=== PATIENT | female | born 1990 | race Asian ===

== ENCOUNTER 2017-07-22 08:56 | Emergency (ER) | payer MEDICAID ==
[2017-07-22 10:10] LABS: Basophils # (auto) 0 uL; Basophils % (auto) 0.3 % (0.0-2.0); CONDITION Y; Eosinophils # (auto) 0.1 uL; Hematocrit 47.2 % (36.0-46.0); Hemoglobin 15.6 g/dL (12.2-16.2); Lymphocytes # (auto) 2.6 uL; Lymphocytes % (auto) 35.4 % (10.0-50.0); Mean Corpuscular Hemoglobin 30.9 pg (28.0-32.0); Mean Corpuscular Hgb Conc. 33.2 g/dL (32.0-36.0); Mean Corpuscular Volume 93.2 fL (80.0-100.0); Mean Platelet Volume 10.3 fL (7.4-10.4); Monocytes # (auto) 0.5 uL; Monocytes % (auto) 7.1 % (0.0-12.0); Neutrophils % (auto) 55.2 % (37.0-80.0); Platelet Count (auto) 248 10^3/uL (140-450); Red Cell Distribution Width 13.8 % (11.6-16.0); White Blood Cell 7.3 10^3/uL (4.4-10.8)
[2017-07-22 10:11] LABS: Urine RBC None Seen /hpf (0 - 4)
[2017-07-22 10:23] LABS: Albumin 3.6 g/dL (3.4-5.0); BUN/Creatinine Ratio 12.9; Bilirubin, Total 1.1 mg/dL (0.2-1.0); Calcium 8.8 mg/dL (8.5-10.1); Total Protein 8.7 g/dL (6.4-8.2)
[2017-07-22 10:35] LABS: Urine Bilirubin Negative (Negative); Urine Blood Negative /uL (Negative); Urine Color Yellow (Yellow); Urine Glucose Normal (Normal); Urine Ketone Negative (Negative); Urine Mucus FEW (None Seen); Urine Nitrite Negative (Negative); Urine Squamous Epithelial Cell FEW /hpf (<5)
[2017-07-22] MEDS ORDERED: KETOROLAC TROMETH 60MG/2ML VIAL IM ONE (11:00)
[2017-07-22 13:08] VITALS: BP 115/71
== END 2017-07-22 13:18 | disposition home or self-care (01) ==
LOC: ER 08:56
DX: N83.202 Unspecified ovarian cyst, left side (principal)
CPT/HCPCS: 36415; 74176; 80053; 81001; 81025; 82150; 83690; 84702; 85025; 94761; 96372; 99285; J1885

== ENCOUNTER 2018-02-15 19:15 | Emergency (ER) | payer MEDICAID ==
[~2018-02-15] VITALS: Ht 170.2 cm; Wt 127.0 kg
[2018-02-15 19:32] VITALS: BP 129/76
[2018-02-15] MEDS ORDERED: cefTRIAXone SOD 1,000 MG VL IM ONE (23:00)
[2018-02-15] MEDS ORDERED: methylPREDNISolone SOD SUCC 40 MG/ML VL IM ONE (23:00)
== END 2018-02-15 23:00 | disposition home or self-care (01) ==
LOC: ER 19:15
DX: J03.90 Acute tonsillitis, unspecified (principal)
CPT/HCPCS: 99283; J0696; J2920

== ENCOUNTER 2018-03-05 10:23 | Emergency (ER) | payer MEDICAID ==
[~2018-03-05] VITALS: Ht 170.2 cm; Wt 124.3 kg
[2018-03-05 10:45] VITALS: BP 133/86
[2018-03-05] MEDS ORDERED: cefTRIAXone SOD 1,000 MG VL IM ONE (11:00)
[2018-03-05] MEDS ORDERED: LIDOCAINE 1% (LOCAL ANESTH.) PF 5ml SDV ONE (12:24)
== END 2018-03-05 12:52 | disposition home or self-care (01) ==
LOC: ER 10:23
DX: J20.9 Acute bronchitis, unspecified (principal)
CPT/HCPCS: 96372; 99283; J0696

== ENCOUNTER 2018-04-17 11:08 | Emergency (ER) | payer MEDICAID ==
[~2018-04-17] VITALS: Ht 170.2 cm; Wt 122.5 kg
[2018-04-17 14:33] VITALS: BP 147/75
== END 2018-04-17 15:31 | disposition home or self-care (01) ==
LOC: ER 11:10
DX: M54.5 Low back pain (principal)
CPT/HCPCS: 74176; 81025

== ENCOUNTER 2018-08-17 11:33 | Emergency (ER) | payer MEDICAID ==
[~2018-08-17] VITALS: Ht 170.2 cm; Wt 120.2 kg
[2018-08-17 12:05] VITALS: BP 142/93
[2018-08-17 12:20] LABS: Urine Bacteria NONE SEEN /hpf (None Seen); Urine Blood Negative /uL (Negative); Urine Mucus FEW (None Seen); Urine Specific Gravity 1.028 (1.001-1.035); Urine WBC 1 /hpf (0 - 5)
== END 2018-08-17 14:18 | disposition left against medical advice (07) ==
LOC: ER 11:33
DX: N83.202 Unspecified ovarian cyst, left side (principal); Z53.29 Procedure and treatment not carried out because of patient's decision for other reasons
CPT/HCPCS: 76856; 81001; 81025

== ENCOUNTER 2020-02-01 13:59 | Emergency (ER) | payer MEDICAID, OTHER ==
[~2020-02-01] VITALS: Ht 170.2 cm; Wt 127.0 kg
[2020-02-01 15:31] VITALS: BP 131/82
[2020-02-01] MEDS ORDERED: IBUPROFEN 800 MG TAB PO ONE (16:15)
== END 2020-02-01 16:43 | disposition home or self-care (01) ==
LOC: ER 13:59
DX: S63.91XA Sprain of unspecified part of right wrist and hand, initial encounter (principal); X50.1XXA Overexertion from prolonged static or awkward postures, initial encounter; Y93.89 Activity, other specified; Y99.8 Other external cause status; Y92.69 Other specified industrial and construction area as the place of occurrence of the external cause
CPT/HCPCS: 29125; 73130

== ENCOUNTER 2020-05-14 08:55 | Emergency (ER) | payer OTHER ==
[~2020-05-14] VITALS: Ht 170.2 cm; Wt 104.3 kg
[2020-05-14 09:17] VITALS: BP 135/107
== END 2020-05-14 10:54 | disposition home or self-care (01) ==
LOC: ER 08:55
DX: S00.03XA Contusion of scalp, initial encounter (principal); Y04.0XXA Assault by unarmed brawl or fight, initial encounter; Y93.89 Activity, other specified; Y92.89 Other specified places as the place of occurrence of the external cause; Y99.0 Civilian activity done for income or pay
CPT/HCPCS: 70450

== ENCOUNTER 2024-04-14 13:35 | Inpatient (IN) | payer BC, OTHER ==
[~2024-04-14] VITALS: Ht 170.2 cm; Wt 114.7 kg
[2024-04-14 14:03] LABS: Basophils # (auto) 0.1 10 ^3/uL (0-0.2); Eosinophils # (auto) 0.1 10 ^3/uL (0-0.8); Eosinophils % (auto) 1.1 % (0.0-7.0); Hemoglobin 15.3 g/dL (12.2-16.2); Lymphocytes # (auto) 2.1 10 ^3/uL (0.4-5.4); Lymphocytes % (auto) 25.9 % (10.0-50.0); Mean Corpuscular Hemoglobin 30.3 pg (28.0-32.0); Mean Corpuscular Volume 89.2 fL (80.0-100.0); Monocytes # (auto) 0.6 10 ^3/uL (0-1.3); Monocytes % (auto) 7.9 % (0.0-12.0); Neutrophils # (auto) 5.2 10 ^3/uL (1.6-8.6); Neutrophils % (auto) 64.1 % (37.0-80.0); Nucleated Red Blood Cells % 0.1 %; Red Blood Cells 5.05 10^6/uL (4.0-5.20); Red Cell Distribution Width 13.8 % (11.8-14.3); White Blood Cell 8.1 10^3/uL (4.4-10.8)
[2024-04-14 14:19] LABS: Alanine Aminotransferase 42 U/L (7-40); Albumin 4.2 g/dL (3.2-4.8); Alkaline Phosphatase 62 U/L (46-116); Anion Gap 4 (5-15); Aspartate Aminotransferase 42 U/L (13-40); BUN/Creatinine Ratio 8.7 (10.0-20.0); Blood Urea Nitrogen 6 mg/dL (9-23); Calcium 9.3 mg/dL (8.5-10.1); Carbon Dioxide 26 mmol/L (20-30); Chloride 106 mmol/L (98-107); Glucose 204 mg/dL (74-106); Sodium 136 mmol/L (136-145); Total Protein 7.6 g/dL (5.7-8.2)
[2024-04-14 14:53] LABS: Urine Bacteria FEW /hpf (None Seen); Urine Blood Negative /uL (Negative); Urine Clarity Clear (Clear); Urine Color Yellow (Yellow); Urine Mucus MODERATE (None Seen); Urine Protein, UAD 1+ (Negative); Urine Specific Gravity 1.024 (1.001-1.035); Urine Urobilinogen Normal (Negative); Urine WBC 4 /hpf (0 - 5)
[2024-04-14] MEDS: SODIUM CHLORIDE 0.9% 1,000 ML IV ONE ×2 (15:21→15:55)
[2024-04-14] MEDS ORDERED: ACETAMINOPHEN 325 MG TAB PO PRN (17:30)
[2024-04-14] MEDS ORDERED: DOCUSATE SOD 100 MG CAP PO PRN (17:30)
[2024-04-14] MEDS ORDERED: ONDANSETRON HCL 4 MG/2 ML VIAL IV PRN (17:30)
[2024-04-14] MEDS: LACTATED RINGER'S 1,000 ML IV ONE (19:45)
[2024-04-14] MEDS: SODIUM CHLOR 0.9% PF (SALINE LOCK) 10ML VIAL/SYR IV SCH (22:00)
[2024-04-15] VITALS (9 sets, daily range): BP systolic 105–130; BP diastolic 57–87; PULSE 63–77; RESP 16–18; TEMP 97.6–98.7; O2SAT 93–100
[2024-04-15] MEDS: HYDROcodone-ACET 5/325MG TAB PO PRN (01:21)
[2024-04-15] MEDS: ENOXAPARIN SOD 40 MG/0.4 ML SYRINGE SC SCH (09:33)
[2024-04-15] MEDS: HYDROmorphone HCL 2 MG/ML VL/or syr IV PRN (09:34)
[2024-04-15] MEDS: DOCUSATE SOD 100 MG CAP PO SCH (21:38)
[2024-04-15] MEDS: DICYCLOMINE HCL 10 MG CAP PO ONE (21:47)
[2024-04-16 01:00] VITALS: BP 112/50; PULSE 70; RESP 16; TEMP 97.9; O2SAT 95
[2024-04-16 05:00] VITALS: BP 95/48; PULSE 63; RESP 16; TEMP 97.9; O2SAT 96
[2024-04-16 06:18] LABS: Alanine Aminotransferase 33 U/L (7-40); Albumin 3.5 g/dL (3.2-4.8); Alkaline Phosphatase 46 U/L (46-116); Anion Gap 5 (5-15); Aspartate Aminotransferase 33 U/L (13-40); BUN/Creatinine Ratio 9.8 (10.0-20.0); Blood Urea Nitrogen 6 mg/dL (9-23); Calcium 8.9 mg/dL (8.7-10.4); Carbon Dioxide 24 mmol/L (20-30); Chloride 107 mmol/L (98-107); Glucose 151 mg/dL (74-106); Lipase 36 U/L (12-53); Potassium 3.6 mmol/L (3.5-5.1); Sodium 136 mmol/L (136-145)
[2024-04-16 06:19] LABS: Bilirubin, Total 0.5 mg/dL (0.2-1.0); Total Protein 6.3 g/dL (5.7-8.2)
[2024-04-16 08:00] VITALS: PULSE 80; RESP 19; TEMP 98.2; O2SAT 96
[2024-04-16 08:27] VITALS: BP 103/49; PULSE 80; RESP 19; TEMP 98.2; O2SAT 96
[2024-04-16 12:28] VITALS: BP 109/63; PULSE 66; RESP 19; TEMP 98.5; O2SAT 96
[2024-04-16 14:00] VITALS: PULSE 80; RESP 19; TEMP 36.9; O2SAT 96
[2024-04-18 10:07] LABS: Hepatitis B Core Total AB Negative (Negative)
[2024-04-18 11:20] LABS: Hepatitis A Total Antibody Positive (Negative); Hepatitis B Surface Antibody Positive (Negative)
[2024-04-18 11:21] LABS: Hepatitis B Surface Antigen Negative (Negative); Hepatitis C Antibody Negative (Negative)
== END 2024-04-16 14:25 | disposition home or self-care (01) | DRG 392 ==
LOC: ER 13:35 → OVERFLOW 17:31 → CENTRAL 23:47
PROVIDERS: ADMIT Internal Medicine Geriatric Medicine; ATTEND Internal Medicine Geriatric Medicine
DX: R10.9 Unspecified abdominal pain (principal); K82.8 Other specified diseases of gallbladder; E86.0 Dehydration; E11.65 Type 2 diabetes mellitus with hyperglycemia; T50.995A Adverse effect of other drugs, medicaments and biological substances, initial encounter; E66.01 Morbid (severe) obesity due to excess calories; Z68.39 Body mass index [BMI] 39.0-39.9, adult; Z82.49 Family history of ischemic heart disease and other diseases of the circulatory system; Z83.3 Family history of diabetes mellitus; Y92.89 Other specified places as the place of occurrence of the external cause
CPT/HCPCS: 36415; 74176; 76705; 80053; 81001; 83036; 83690; 84443; 85025; 86038; 86704; 86706; 86708; 86803; 87340; G0378

== ENCOUNTER 2024-09-25 11:01 | Observation (INO) | payer BC, MEDICAID, OTHER ==
[~2024-09-25] VITALS: Ht 170.2 cm; Wt 121.0 kg
[2024-09-25 11:10] VITALS: BP 159/100; PULSE 103; RESP 18; O2SAT 98
--- NOTE | 2024-09-25 11:10 | ED.PDOC ---
LEGAL COLLECTOR HPI Comments Tapopo: HPI: Poor Historian. 34-year-old female presents to the emergency department for evaluation of vaginal bleeding with the cramps that started half an hour prior to arrival. Pain is constant. Cramping started after she started bleeding. Patient is 29 weeks gestation. Denies any other acute symptoms. Patient vitals are stable. She was sent directly to L and D per hospital protocol. Past medical history gestational diabetes Past surgical history left ovarian cyst removal Patient is currently on vitamins and aspirin REVIEW OF SYSTEMS: CONSTITUTIONAL: Denies acute: fever, diaphoresis, chills, generalized weakness. HEAD: Denies acute: headache, photophobia Eyes: Denies acute: Double vision, vision loss, eye pain, eye discharge. EARS: Denies acute: tinnitus, hearing loss, ear discharge, ear pain, THROAT: Denies acute: sore throat, swelling, difficulty swallowing , pain with swallowing, change in voice. NECK: Denies acute: neck pain, neck swelling, stiff neck. HEART: Denies acute : chest pain, palpitations, LUNGS: Denies acute: SOB, wheezing, cough, hemoptysis ABDOMEN: Denies acute: Nausea, Vomiting, diarrhea, melena , hematemesis, hematochezia SKIN: Denies acute: rash, redness, lesions, itchiness. EXTREMITIES: Denies acute: calf pain, numbness, tingling, weakness, denies pain in extremity. Denies acute: Low back pain. Neuro: Denies acute: focal neurological deficit, motor or sensory focal neurological deficit, tremors, seizure like activity, confusion, dizziness, change in mental status, loss of bowel or bladder function, cauda equina like symptoms. : Denies acute: dysuria, hematuria, flank pain, increase in urinary frequency. PSYCH: Denies acute: hallucination, suicidal ideation, homicidal ideation. FEMALE: Denies acute: foul odor, unusual discharge. PHYSICAL EXAM: General: no acute distress, awake and alert. Head: normocephalic, atraumatic. Neck: supple, trachea is midline, no swelling. Throat: Normal phonation. Eyes:, no erythema, no purulent discharge, no proptosis, no icterus. Heart: regular rate, regular rhythm, no significant murmur appreciated. Lungs: no apparent respiratory distress, Able to speak in full sentences. No wheezing, no rhonchi, no crackles. No stridors Clear to auscultation bilaterally. Abdomen: Minimal suprapubic tender to palpation, non distended, soft, no guarding, no rebound, + bowel sounds. Gravid abdomen Neuro: Awake, Alert, oriented to name, self, situation, follows commands GCS=15. Speech is normal. Skin: no petechia, no purpura, no cyanosis, non-pale, not jaundice. Lower extremities: --no - Pitting edema no deformity, no focal swelling, no calf TTP. Makes eye contact. moves all four extremities. Face: no apparent facial droop. Ambulating in the ED independently. 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 Was a procedure done?: No Differential Diagnosis (REVENUE FIELD AUDITOR) Vaginal Bleeding: Other (Differential diagnosis includes but not limited to DU B, menorrhea, metromenorrhagia, neoplasm, coagulopathy,, trauma, miscarriage, placenta previa, placental abruption, ) X-Ray, Labs, Meds, VS Vital Signs Date Time Temp Pulse Resp B/P (MAP) Pulse Ox O2 Delivery O2 Flow Rate FiO2 09/25/24 11:10 97.8 103 18 159/100 (119) [address] [facility] [id number] [place], [place] [id number] Ph: [phone] DIAGNOSTIC IMAGING Diagnostic Imaging Report : [id number] Signed PATIENT: CESILIA MAHARAJ YOVANYCCT: [id number] UNIT: [id number] : 1990 LOC: [facility] ROOM / BED: [facility] / A AGE / SEX: 34 / F ADM STATUS: ADM IN SERVICE 1138 ORDERING PHYSICIAN: RIGOBERTO PATEL DO PROCEDURE(s): OBLTD - OBSTERICAL LIMITED REASON: vaginal bleeding ORDER NUMBER(s): [id number], ACCESSION NUMBER(s): [id number] LIMITED OB ULTRASOUND > 14 WKS: HISTORY: vaginal bleeding TECHNIQUE: Multiple real-time grayscale images of the gravid uterus with duplex Doppler color flow and M-mode spectral analysis. TRANSDUCER: Transabdominal. FINDINGS: IUP single live fetus at 28 weeks 4 days based on composite averages of the BPD, head circumference, abdominal circumference and femur length Estimated weight 1420 grams heart rate beats per minute LUZ subjectively within normal limits. Cervix measures 1.2 cm and funneling is visualized. Cephalic Presentation Posterior Placenta without previa or abruption. IMPRESSION: IUP single live fetus at 28 weeks 4 days AUA corresponding to an DARSHAN of 12/14/2024. Cervix measures 1.2 cm and funneling is visualized. ATED BY: LUIS CARLOS BOCANEGRA MD DICTATED DATE/TIME: 09/25/241243 SIGNED BY: LUIS CARLOS BOCANEGRA MD SIGNED DATE/TIME: 09/25/24 124 CC: Time of 1ST Reevaluation: 11:40 Reevaluation 1ST: Unchanged Patient Education/Counseling: Diagnosis, Treatment Family Education/Counseling: No Family Present Comments Patient presented with the above HPI.---vaginal bleeding in ---workup was initiated. patient was found with the above mentioned diagnosis. Patient ED course and VS have been stabilized. Patient has been reassessed in the ED and remained in a stable condition. Pertinent incidental findings were discussed with the patient and/or family. Patient/family voices understanding and is agreeable with plan. Patient has been observed in the ED adequate length of time to insure improvement/stability. patient was discharged home in a stable condition with return precautions. All the reports of any imaging studies that were ordered by myself were reviewed by myself. Ultrasound order was obtained by [facility] labor and delivery. Please see the report results. Patient was dispositioned before any diagnostic test was performed in the ED. Departure 1 Departure Time of Disposition: 11:12 Impression: Primary Impression: Vaginal bleeding during Additional Impression: Abdominal cramping affecting Disposition: 01 HOME / SELF CARE / HOMELESS Condition: Stable Additional Instructions: You are being taken directly to labor and delivery for further evaluation and treatment. Please return to the emergency department if you have any other unaddressed symptoms or problems or complications. e-Prescriptions No Active Prescriptions or Reported Meds Discharged With: Self Critical Care Note Critical Care Time?: No I personally scribed for FARZANA DE LEON DO ([email or web address]) on 09/25/24 at 11:10. Electronically submitted by William Sánchez ([email or web address]). FARZANA DE LEON DO Sep 25, 2024 11:10
--- NOTE | 2024-09-25 12:45 | DVH ---
LIMITED OB ULTRASOUND > 14 WKS: HISTORY: vaginal bleeding TECHNIQUE: Multiple real-time grayscale images of the gravid uterus with duplex Doppler color flow an d M-mode spectral analysis. TRANSDUCER: Transabdominal. FINDINGS: IUP single live fetus at 28 weeks 4 days based on composite averages of the BPD, head circumference, abdominal circumference and femur length Estimated weight 1420 grams heart rate beats per minute LUZ subjectively within normal limits. Cervix measures 1.2 cm and funneling is visualized. Cephalic Presentation Posterior Placenta without previa or abruption. IMPRESSION: IUP single live fetus at 28 weeks 4 days AUA corresponding to an DARSHAN of 12/14/2024. Cervix measures 1.2 cm and funneling is visualized.
--- NOTE | 2024-09-25 13:18 | DVHDS2 ---
Physician Discharge Progress N Final Diagnosis: ptl Operations or Procedures: Operations or Procedures nst,sono Condition on Discharge: Stable Disposition: Home Discharge Instructions: Activity: Light activity Medications: na Follow Up Care: Specialist: fu with catr[facility] [place] or [facility] Discharge Statement: "Patient was advised to return to the ER or call 911 if any headaches, dizziness, shortness of breath, chest pain, abdominal pain, bleeding, fevers, or worsening of medical condition. Patient was counseled about treatment plan, medications, possible side effects, patientverbalized understanding. All questions were answered to the best of my ability. This discharge took greater then 30 minutes in planning, reviewing documentation, counseling the patient, and discussing with other team members." RIGOBERTO PATEL DO Sep 25, 2024 13:18
== END 2024-09-25 13:40 | disposition home or self-care (01) ==
LOC: ER 11:01 → LDRP 11:39
PROVIDERS: ADMIT Obstetrics & Gynecology; ATTEND Obstetrics & Gynecology
DX: O46.93 Antepartum hemorrhage, unspecified, third trimester (principal); Z3A.28 28 weeks gestation of pregnancy; Z79.899 Other long term (current) drug therapy
CPT/HCPCS: 59025; 76815; 81002; 94760; 99284; G0378